=== PATIENT | female | born 1960 | race Caucasian/White ===

== ENCOUNTER 2017-09-22 07:16 | Day surgery (SDC) | payer BC ==
[2017-09-20 11:58] VITALS: BMI 26.2
--- NOTE | 2017-09-21 14:56 | P.GSHP ---
History of Present Illness H&P Date: 09/21/17 Chief Complaint: GI bleeding Patient presents for colonoscopy because of rectal bleeding. No other bowel related complaints. No known history of familial colon cancer. Past Medical History Past Medical History: Atrial Fibrillation, Hypertension, Osteoarthritis (OA), Skin Disorder, Sleep Apnea/CPAP/BIPAP, Thyroid Disorder Additional Past Medical History / Comment(s): dk blood present with stools,rash chin, Other HX: no CPAP. Pt had HELLP syndrome with a . Hypothyroidism. OA bilateral knees,A-fib approx 10 yrs ago History of Any Multi-Drug Resistant Organisms: None Reported Past Surgical History: Adenoidectomy, Bariatric Surgery, Orthopedic Surgery, Tonsillectomy Additional Past Surgical History / Comment(s): 06/08/15 Bilateral knee arthroplasty. Other SX: LAP BAND-fluid present, ARTHROSCOPY LT KNEE, D&C, repair of hiatal hernia, ORIF left ankle, . Past Anesthesia/Blood Transfusion Reactions: Motion Sickness, Postoperative Nausea & Vomiting (PONV) Additional Past Anesthesia/Blood Transfusion Reaction / Comment(s): Pt has recieved platelets without reaction. Smoking Status: Former smoker - Past Family History Sister(s) Family Medical History: Cancer, Hypertension Additional Family Medical History / Comment(s): lung mets to brain. Father Family Medical History: Coronary Artery Disease (CAD) Additional Family Medical History / Comment(s): Father at age 64yrs of a reaction to dye Mother Additional Family Medical History / Comment(s): Mother had myasthenia gravis and polymyositosis. Medications and Allergies Home Medications Medication Instructions Recorded Confirmed Type Levothyroxine Sodium [Synthroid] 137 mcg PO DAILY 12/17/14 09/20/17 History Losartan [Cozaar] 50 mg PO QAM 12/17/14 09/20/17 History ALPRAZolam [Xanax] 0.5 mg PO BID PRN 06/02/15 09/20/17 History Calcium Carbonate/Vitamin D3 1,200 mg PO QAM 09/20/17 09/20/17 History [Calcium 600-Vit D3 500 Softgel] Multivit with Calcium,Iron,Min 1 each PO DAILY 09/20/17 09/20/17 History [Women's Multivitamin] Allergies Allergy/AdvReac Type Severity Reaction Status Date / Time Sulfa (Sulfonamide AdvReac Nausea Verified 09/20/17 11:47 Antibiotics) Assessment and Plan (1) GI bleeding Narrative/Plan: Will proceed with colonoscopy on 09/22. Status: Acute Code(s): K92.2 - GASTROINTESTINAL HEMORRHAGE, UNSPECIFIED SNOMED Code(s): 36828762
[~2017-09-22 07:16] MED LIST: LACTATED RINGERS 1,000 ML IV SCH
[2017-09-22] MEDS ORDERED: LACTATED RINGERS 1,000 ML IV ONE (07:22)
[2017-09-22 07:30] VITALS: TEMP 98.9
[2017-09-22] MEDS ORDERED: fentaNYL (PF) 50 MCG/ML 2 ML AMP ONE (07:45)
[2017-09-22] MEDS ORDERED: PROPOFOL 10 MG/ML 20 ML VIAL IV ONE (07:45)
[2017-09-22] MEDS ORDERED: LIDOCAINE 1% INJ 10MG/ML (20 ML MDV) ONE (07:45)
--- NOTE | 2017-09-22 07:52 | P.HPADDEND ---
H&P Addendum H&P Addendum Date: 09/22/17 Patient here today for colonoscopy. She describes bloody stools which are actually sometimes black in color. No abdominal pain. No prior upper endoscopy. We discussed the options and decided to proceed with upper and lower endoscopy at this time. Physical exam: General: Well-developed, well-nourished HEENT: Normocephalic, sclerae nonicteric Abdomen: Nontender, nondistended Extremities: No edema Neuro: Alert and oriented
--- NOTE | 2017-09-22 08:17 | P.PCN ---
Date of Procedure: 09/22/17 Procedure(s) Performed: PREOPERATIVE DIAGNOSIS: GI bleeding POSTOPERATIVE DIAGNOSIS: Distal esophagitis, mild gastritis, diverticulosis PROCEDURE: 1. EGD with biopsy 2. Colonoscopy ANESTHESIA: MAC SURGEON: Balta Whtiman M.D. SPECIMENS: Antrum, distal esophagus ENDOSCOPIC PROCEDURE: The patient was on the endoscopy table in the left decubitus position. The Olympus gastroscope was inserted into the oropharynx and passed under direct visualization to the region of the third portion of the duodenum. From that point the scope was slowly withdrawn inspecting all surfaces carefully. There were no neoplastic inflammatory or polypoid lesions throughout the duodenum. The pylorus was widely patent. The stomach was carefully inspected. There was mild gastritis present. Retroflexion revealed a previous gastric banding. No evidence of erosion or prolapse. The distal esophagus had evidence of grade B distal esophagitis area and 2-3 linear erosions were present measuring approximately 1 cm in length. Biopsies were taken of the distal esophagitis. The remainder the esophagus appeared normal. The patient was kept on the endoscopy table in the left decubitus position. The Olympus colonoscope was inserted into the anus and passed under direct visualization to the base of the cecum. The appendiceal orifice was visualized. From that point the scope was slowly withdrawn inspecting all surfaces carefully. There were no neoplastic inflammatory or polypoid lesions throughout the cecum, ascending, transverse, descending, sigmoid and rectum. There was mild diverticulosis noted in the left colon. Digital rectal examination was normal. The patient was taken to the recovery room in stable condition per anesthesia guidelines. RECOMMENDATIONS: Consider loosening the patient's lap band. If bleeding persists consider small bowel evaluation.
[2017-09-22 08:19] VITALS: RESP 16
[2017-09-22 08:57] VITALS: BP 137/76; PULSE 64
== END 2017-09-22 09:42 | disposition home or self-care (01) ==
LOC: ORWHC2ENDO 07:16
PROVIDERS: ATTEND Surgery
DX: K20.9 Esophagitis, unspecified (principal); K29.70 Gastritis, unspecified, without bleeding; K57.30 Diverticulosis of large intestine without perforation or abscess without bleeding; Z98.84 Bariatric surgery status; I48.91 Unspecified atrial fibrillation; I10 Essential (primary) hypertension; M19.90 Unspecified osteoarthritis, unspecified site; G47.30 Sleep apnea, unspecified; E03.9 Hypothyroidism, unspecified; M17.0 Bilateral primary osteoarthritis of knee; G47.33 Obstructive sleep apnea (adult) (pediatric); Z87.891 Personal history of nicotine dependence; Z79.899 Other long term (current) drug therapy; Z79.890 Hormone replacement therapy; Z88.2 Allergy status to sulfonamides
CPT/HCPCS: 88305; 88312; 45378; 43239; J2001; J3010; J2704

== ENCOUNTER 2018-07-06 06:17 | Day surgery (SDC) | payer BC ==
[2018-07-04 14:35] VITALS: BMI 25.3
[~2018-07-06 06:17] MED LIST changes: +DEXAMETHASONE SOD PHOSPHATE 10 MG/ML 1 ML VIAL IV ONE; +HEPARIN SODIUM,PORCINE 5,000 UNIT/ML 1 ML VIAL SQ ONE; +HYDROmorphone 1 MG/ML 1 ML SYRINGE IVP PRN; +MIDAZOLAM 2 MG/2 ML VIAL IV PRN; +ONDANSETRON 4 MG/2 ML VIAL IVP ONE; +Pre Op ABX Message 1 EACH MISC MISCELLANE ONE; +SCOPOLAMINE 1.5MG/72HR PATCH TRANSDERM ONE
[2018-07-06] MEDS ORDERED: LIDOCAINE 1% 20 ML VIAL (10MG/ML) FOR IV START INTRADERMA ONE (07:05)
[2018-07-06 07:07] VITALS: RESP 16; TEMP 97.5
[2018-07-06] MEDS ORDERED: BUPIVACAIN-EPI 0.25%-1:200,000 30 ML VIAL SQ ONE ×2 (07:33)
[2018-07-06] MEDS ORDERED: PROPOFOL 10 MG/ML 20 ML VIAL IV ONE (07:54)
[2018-07-06] MEDS ORDERED: fentaNYL (PF) 50 MCG/ML 2 ML AMP ONE (07:54)
[2018-07-06] MEDS ORDERED: GLYCOPYRROLATE 0.2 MG/ML 2 ML VIAL ONE (07:54)
[2018-07-06] MEDS ORDERED: KETAMINE 10 MG/ML 20 ML VIAL ONE (07:54)
[2018-07-06] MEDS ORDERED: MIDAZOLAM 2 MG/2 ML VIAL ONE (07:54)
[2018-07-06] MEDS ORDERED: HYDROcodone/APAP 5-325MG 1 EACH TAB PO PRN (08:32)
[2018-07-06] MEDS ORDERED: NALOXONE 0.4 MG/ML 1 ML VIAL IV PRN (08:32)
--- NOTE | 2018-07-06 08:48 | P.OP ---
Date of Procedure: 07/06/18 Procedure(s) Performed: PREOPERATIVE DIAGNOSIS: Posterior neck sebaceous cyst POSTOPERATIVE DIAGNOSIS: Same PROCEDURE: Excision posterior neck sebaceous cyst SURGEON: J Carlos EBL: Minimal ANESTHESIA: Sedation COMPLICATIONS: None OPERATIVE PROCEDURE: Patient placed in the left decubitus position. The posterior neck was prepped and draped in usual sterile fashion. The skin was localized with Marcaine. A small elliptical incision was made encompassing the puncta overlying the sebaceous cyst. Sebaceous cyst was fully excised using sharp dissection. The subcutaneous tissues were closed using 3-0 Vicryl sutures. The skin was closed using 4-0 Monocryl sutures. Skin glue was used on the skin. DISPOSITION: Stable to recovery room
[2018-07-06 09:09] VITALS: BP 120/67; PULSE 65
== END 2018-07-06 09:59 | disposition home or self-care (01) ==
LOC: OR 06:17
PROVIDERS: ATTEND Surgery
DX: L72.0 Epidermal cyst (principal); I48.91 Unspecified atrial fibrillation; I10 Essential (primary) hypertension; M19.90 Unspecified osteoarthritis, unspecified site; E03.9 Hypothyroidism, unspecified; G47.33 Obstructive sleep apnea (adult) (pediatric); Z98.84 Bariatric surgery status; Z82.49 Family history of ischemic heart disease and other diseases of the circulatory system; Z88.2 Allergy status to sulfonamides; Z79.890 Hormone replacement therapy; Z79.899 Other long term (current) drug therapy
CPT/HCPCS: 88304; 11422; 12041; J2250; J1644; J1100; J2405; J3010; J2704

== ENCOUNTER → 2019-05-31 | Outpatient (CLI) | payer BC ==
[2019-05-31 13:05] LABS: HCT 38.1 % (34.0-46.0); HGB 12.6 gm/dL (11.4-16.0); MCH 30.6 pg (25.0-35.0); MCV 92.5 fL (80.0-100.0); Mean Platelet Volume 8.1; Platelet Count 221 k/uL (150-450); RBC 4.12 m/uL (3.80-5.40); WBC 7.5 k/uL (3.8-10.6)
[2019-05-31 13:20] LABS: African American GFR (CKD) >90 (>60 ml/min/1.73 sqM); Anion Gap 7 mmol/L; Blood Urea Nitrogen 14 mg/dL (7-17); Carbon Dioxide 29 mmol/L (22-30); Chloride 104 mmol/L (98-107); Potassium 4.6 mmol/L (3.5-5.1); Sodium 140 mmol/L (137-145)
== END | disposition home or self-care (01) ==
LOC: LABPAT 11:52
PROVIDERS: ATTEND Internal Medicine Cardiovascular Disease
DX: Z01.812 Encounter for preprocedural laboratory examination (principal); I47.2 Ventricular tachycardia
CPT/HCPCS: 36415; 80051; 82565; 84520; 85027

== ENCOUNTER 2019-06-04 06:33 | Day surgery (SDC) | payer BC ==
[2019-05-31 11:09] VITALS: BMI 26.2
[~2019-06-04 06:33] MED LIST changes: +ALPRAZolam 0.25 MG TAB PO PRN; +ALPRAZolam 0.5 MG TAB PO PRN; -DEXAMETHASONE SOD PHOSPHATE 10 MG/ML 1 ML VIAL IV ONE; -HEPARIN SODIUM,PORCINE 5,000 UNIT/ML 1 ML VIAL SQ ONE; -HYDROmorphone 1 MG/ML 1 ML SYRINGE IVP PRN; -LACTATED RINGERS 1,000 ML IV SCH; -MIDAZOLAM 2 MG/2 ML VIAL IV PRN; +NITROGLYCERIN SL TABS 0.4 MG TAB SUBLINGUAL PRN; -ONDANSETRON 4 MG/2 ML VIAL IVP ONE; -Pre Op ABX Message 1 EACH MISC MISCELLANE ONE; -SCOPOLAMINE 1.5MG/72HR PATCH TRANSDERM ONE; +SODIUM CHLORIDE 0.9% 1,000 ML in EMPTY BAG 1 BAG IV ONE
[2019-06-04] MEDS ORDERED: ASPIRIN 325 MG TAB PO ONE (07:00)
[2019-06-04] MEDS ORDERED: ATORVASTATIN 80 MG TAB PO ONE (07:00)
[2019-06-04 07:05] VITALS: TEMP 98
[2019-06-04] MEDS ORDERED: LIDOCAINE 1% INJ 10MG/ML (20 ML MDV) ONE (07:28)
[2019-06-04] MEDS: MIDAZOLAM (PF) 2 MG/2 ML VIAL IV ONE ×2 (07:45→07:59)
[2019-06-04] MEDS ORDERED: LIDOCAINE 1% INJ 10MG/ML (20 ML MDV) SQ ONE (07:48)
[2019-06-04] MEDS ORDERED: fentaNYL (PF) 50 MCG/ML 2 ML AMP IV ONE (07:49)
[2019-06-04] MEDS ORDERED: fentaNYL (PF) 50 MCG/ML 2 ML AMP ONE (07:49)
[2019-06-04] MEDS ORDERED: IOPAMIDOL-370 125ML BTL INJ ONE (08:09)
[2019-06-04] MEDS ORDERED: RX INFO: IV CONTRAST WAS GIVEN 1 EACH MISC MISCELLANE PRN (08:09)
[2019-06-04] MEDS ORDERED: SODIUM CHLORIDE 0.9% 1,000 ML IV SCH (08:15)
--- NOTE | 2019-06-04 08:25 | CC ---
CARDIAC CATHETERIZATION REPORT INDICATION: Chest pain with abnormal stress test. The patient had nonsustained ventricular tachycardia on treadmill. PROCEDURE NOTE: After obtaining informed consent, left heart catheterization and coronary angiogram were performed via the right femoral artery using standard Julio Cesar catheters. Patient tolerated the procedure well without any obvious immediate complications. A femoral angiogram was performed and Angio-Seal will be deployed for hemostasis. Patient received moderate conscious sedation. Total sedation time was 15 minutes. FINDINGS: 1. HEMODYNAMICS: Left ventricular end-diastolic pressure is 16 to 18 mm. There is no significant gradient across the aortic valve. 2. LEFT VENTRICULOGRAM: Left ventriculogram is not performed. 3. ANGIOGRAPHIC DATA: Left Main Coronary Artery: Left main coronary artery is a normal-sized vessel, shows mild calcification, divides into left anterior descending coronary artery and circumflex coronary artery. Circumflex coronary artery and its branches of significant stenosis. LAD shows some mild atherosclerotic plaque in its midportion. There are no focal significant lesions noted. Right coronary artery is a large dominant vessel and is free of significant disease. CONCLUSION: Mild nonobstructive coronary artery disease. PLAN: I reviewed angiographic data with the patient and told her that her chest pain is noncardiac in origin and the ventricular tachycardia is benign and does not require further evaluation at this time. I will continue with aggressive risk factor modification. In particular, I advised her to quit smoking. MMODL / IJN: [id number] /
--- NOTE | 2019-06-04 08:32 | LTR ---
June 04, 2019 Re: Alessandra Fernandez Dear [place]: I performed cardiac catheterization on Alessandra Fernandez. A detailed catheterization note is enclosed for your records. In brief, cardiac catheterization revealed mild nonobstructive coronary artery disease and her management is going to be in the form of risk factor modification. Thanks for giving us the privilege to participate in the care of this pleasant lady. Sincerely, MD MAICOL Tirado / JOSE: [id number] /
[2019-06-04 09:06] VITALS: RESP 16
[2019-06-04 12:32] VITALS: BP 106/52; PULSE 58
== END 2019-06-04 12:55 | disposition home or self-care (01) ==
LOC: CATHCVL 06:33
PROVIDERS: ATTEND Internal Medicine Cardiovascular Disease
DX: I25.110 Atherosclerotic heart disease of native coronary artery with unstable angina pectoris (principal); I47.2 Ventricular tachycardia; I10 Essential (primary) hypertension; I73.9 Peripheral vascular disease, unspecified; F17.210 Nicotine dependence, cigarettes, uncomplicated; Z88.2 Allergy status to sulfonamides; Z79.890 Hormone replacement therapy; Z79.899 Other long term (current) drug therapy; Z82.49 Family history of ischemic heart disease and other diseases of the circulatory system
CPT/HCPCS: 93458; C1760; C1894; C1769; J2001; Q9967; J2250

== ENCOUNTER → 2019-08-06 | Outpatient (CLI) | payer BC ==
[2019-08-06 13:29] VITALS: BP 112/58; PULSE 58; TEMP 98.1; BMI 29.4
--- NOTE | 2019-08-06 14:35 | P.BASOAP ---
Subjective Progress Note Date: 08/06/19 Principal diagnosis: Morbid obesity Patient here today requesting a lap band adjustment. Patient was last seen in the office in January. She had had a adjustment from 6.5-7.5. She was too tight and came back in the office the following day and had 0.6 mL removed. Requesting more fluid be added. No nausea or vomiting. Some increased hunger. Weight went from 166-174. Objective - Vital Signs Vital signs: Vital Signs Temp 98.1 F 08/06/19 13:23 Pulse 58 L 08/06/19 13:23 Resp BP 112/58 08/06/19 13:23 Pulse Ox Intake & Output 08/05/19 08/06/19 08/06/19 18:59 06:59 18:59 Weight 78.925 kg - Exam Abdomen: Soft, nontender, nondistended Assessment/Plan (1) Morbid obesity Narrative/Plan: Will proceed with LAP-BAND adjustment. The patient's lap band port was palpated. The site was aseptically prepped. The Higuera needle was advanced into the port. A total of 0.3 ml of fluid was was added for a total of 7.2 mL.. Pressure was held and a sterile dressing was applied. Plan: Date: 08/06/19 Initial Weight: Initial BMI: Current Weight: 78.925 kg Current BMI: 29.4 Type of Surgery: Total Volume in Band: Previous Volume: Volume Removed: Volume Added: Band Size:
== END | disposition home or self-care (01) ==
LOC: BARWHC3 12:45
PROVIDERS: ATTEND Surgery
DX: E66.01 Morbid (severe) obesity due to excess calories (principal); Z68.29 Body mass index [BMI] 29.0-29.9, adult; Z98.84 Bariatric surgery status
CPT/HCPCS: 99212

== ENCOUNTER → 2019-08-20 | Outpatient (CLI) | payer BC ==
[2019-08-20 14:50] VITALS: BP 137/63; PULSE 60; RESP 16; TEMP 98.9; BMI 29.2
--- NOTE | 2019-08-20 21:07 | P.BASOAP ---
Subjective Progress Note Date: 08/20/19 Principal diagnosis: Morbid obesity Patient here today requesting a band adjustment. She has lost 1.6 pounds since last visit. Denies nausea or vomiting. Some restriction. No GERD symptoms. Objective - Vital Signs Vital signs: Vital Signs Temp 98.9 F 08/20/19 14:46 Pulse 60 08/20/19 14:46 Resp 16 08/20/19 14:46 BP 137/63 08/20/19 14:46 Pulse Ox Intake & Output 08/20/19 08/20/19 08/21/19 06:59 18:59 06:59 Weight 78.471 kg - Exam Abdomen: Soft, nontender, nondistended Assessment/Plan (1) Morbid obesity Narrative/Plan: Patient interested in band adjustment. We'll add 0.3 cc for a total of 7.5 cc. Follow-up one month. Plan: Date: 08/20/19 Initial Weight: 108.862 kg Initial BMI: 40.5 Current Weight: 78.471 kg Current BMI: 29.2 Type of Surgery: Adjustable Gastric Banding Total Volume in Band: 7.5 Previous Volume: 7.2 Volume Removed: Volume Added: 0.3 Band Size:
== END | disposition home or self-care (01) ==
LOC: BARWHC3 13:39
PROVIDERS: ATTEND Surgery
DX: E66.01 Morbid (severe) obesity due to excess calories (principal); Z68.29 Body mass index [BMI] 29.0-29.9, adult; Z98.84 Bariatric surgery status
CPT/HCPCS: 99212

== ENCOUNTER → 2019-10-01 | Outpatient (CLI) | payer BC ==
[2019-10-01 16:06] VITALS: BP 101/44; PULSE 55; RESP 16; TEMP 98.4; BMI 30.6
--- NOTE | 2019-10-01 21:21 | P.BASOAP ---
Subjective Progress Note Date: 10/01/19 Principal diagnosis: Morbid obesity Patient describes decreased restriction. No pain. No GERD. No vomiting. Band should have 7.5 cc. Previously could not eat bread. Lately eating bread without difficulty Objective - Vital Signs Vital signs: Vital Signs Temp 98.4 F 10/01/19 16:03 Pulse 55 L 10/01/19 16:03 Resp 16 10/01/19 16:03 BP 101/44 10/01/19 16:03 Pulse Ox Intake & Output 10/01/19 10/01/19 10/02/19 06:59 18:59 06:59 Weight 82.1 kg - Exam Abdomen: Soft, nontender, nondistended Assessment/Plan (1) Morbid obesity Narrative/Plan: Patient wants an adjustment. Fluid and band checked. Greater than 6cc present. Will add 0.3. Total should be 7.8. Plan: Date: 10/01/19 Initial Weight: 108.862 kg Initial BMI: 40.5 Current Weight: 82.1 kg Current BMI: 30.6 Type of Surgery: Total Volume in Band: 7.5 Previous Volume: Volume Removed: Volume Added: Band Size:
== END | disposition home or self-care (01) ==
LOC: BARWHC3 15:24
PROVIDERS: ATTEND Surgery
DX: E66.01 Morbid (severe) obesity due to excess calories (principal); Z68.30 Body mass index [BMI] 30.0-30.9, adult
CPT/HCPCS: 99212

== ENCOUNTER → 2019-10-03 | Outpatient (CLI) | payer BC ==
--- NOTE | 2019-10-03 12:03 | FL ---
EXAMINATION TYPE: FL barium swallow DATE OF EXAM: 10/03/2019 CLINICAL HISTORY: Gastric lap for 7 years. Patient does not have restriction at 7-8 cc full. TECHNIQUE: A single contrast esophagram is performed utilizing air and barium. A total of 56 second s of fluoroscopic time was utilized during procedure. 26 fluoroscopic images were saved during the ex amination. COMPARISON: None FINDINGS: Gastric lap band appears appropriately positioned. The esophagus shows normal motility and only very minimal 1-2 second delay in emptying into the stomach. No evidence of hiatal hernia or str icture noted. No significant gastroesophageal reflux was seen during real time performance of this st udy. IMPRESSION: No abnormal positioning of the gastric lap band to suggest prolapse. Contrast flows readily through t he gastric lap band into the stomach without extravasation.
== END | disposition home or self-care (01) ==
LOC: RADUSWWP 11:09
PROVIDERS: ATTEND Surgery
DX: R13.10 Dysphagia, unspecified (principal)
CPT/HCPCS: 74220

== ENCOUNTER 2019-10-28 12:48 | Day surgery (SDC) | payer BC ==
[2019-10-24 17:37] VITALS: BMI 28.7
[~2019-10-28 12:48] MED LIST changes: -ALPRAZolam 0.25 MG TAB PO PRN; -ALPRAZolam 0.5 MG TAB PO PRN; +LACTATED RINGERS 1,000 ML IV SCH; +LIDOCAINE 1% 20 ML VIAL (10MG/ML) FOR IV START INTRADERMA PRN; -NITROGLYCERIN SL TABS 0.4 MG TAB SUBLINGUAL PRN; -SODIUM CHLORIDE 0.9% 1,000 ML in EMPTY BAG 1 BAG IV ONE
[2019-10-28 13:26] VITALS: RESP 16; TEMP 98.4
[2019-10-28] MEDS ORDERED: LIDOCAINE 1% INJ 10MG/ML (20 ML MDV) ONE (14:22)
[2019-10-28] MEDS ORDERED: PROPOFOL 10 MG/ML 20 ML VIAL IV ONE (14:22)
--- NOTE | 2019-10-28 14:24 | P.GSHP ---
History of Present Illness H&P Date: 10/28/19 Chief Complaint: Intractable nausea 58-year-old female known to our service. Patient with history of prior lap band placement. Lately the patient has noticed decreased restriction and some chronic nausea. No dysphagia. No GERD. Past Medical History Past Medical History: Atrial Fibrillation, Hyperlipidemia, Hypertension, Osteoarthritis (OA), Skin Disorder, Sleep Apnea/CPAP/BIPAP, Thyroid Disorder Additional Past Medical History / Comment(s): Doesn't use CPAP, hx wgt loss. Pt had HELLP syndrome with a . A-fib 2007. PVC'S on last Stress Test. Plantar wart on foot. "Lap Band not restricting properly past 5 months." History of Any Multi-Drug Resistant Organisms: None Reported Past Surgical History: Adenoidectomy, Bariatric Surgery, Section, Heart Catheterization, Hernia Repair, Joint Replacement, Orthopedic Surgery, Tonsillectomy Additional Past Surgical History / Comment(s): Total Bilateral Knees. 2011 LAP BAND-fluid present, ARTHROSCOPY LT KNEE, D&C, Repair of hiatal hernia, ORIF left ankle, Ta CTR. Cyst exc post neck. Past Anesthesia/Blood Transfusion Reactions: Motion Sickness, Postoperative Nausea & Vomiting (PONV) Additional Past Anesthesia/Blood Transfusion Reaction / Comment(s): Pt has received platelets without reaction. Smoking Status: Former smoker - Past Family History Sister(s) Family Medical History: Cancer, Hypertension Additional Family Medical History / Comment(s): lung mets to brain. Father Family Medical History: Coronary Artery Disease (CAD) Additional Family Medical History / Comment(s): Father at age 64yrs of a reaction to dye Mother Family Medical History: Cancer Additional Family Medical History / Comment(s): Mother had myasthenia gravis and polymyositosis. Skin CA Medications and Allergies Home Medications Medication Instructions Recorded Confirmed Type Levothyroxine Sodium [Synthroid] 125 mcg PO DAILY 12/17/14 10/28/19 History Losartan [Cozaar] 50 mg PO QAM 12/17/14 10/28/19 History ALPRAZolam [Xanax] 0.5 mg PO BID PRN 06/02/15 10/28/19 History Metoprolol Succinate (ER) [Toprol 25 mg PO DAILY 05/31/19 10/28/19 History Xl] Multivitamins, Thera [Multivitamin 1 tab PO DAILY 05/31/19 10/28/19 History (formulary)] Aspirin/Acetaminophen/Caffeine 1 each PO DIRECTED PRN 10/24/19 10/28/19 History [Excedrin Extra Strength Caplet] Calcium Carbonate/Vitamin D3 1 each PO DAILY 10/24/19 10/28/19 History [Calcium 600-Vit D3 400 Tablet] Pravastatin Sodium [Pravachol] 20 mg PO DAILY 10/24/19 10/28/19 History Allergies Allergy/AdvReac Type Severity Reaction Status Date / Time Sulfa (Sulfonamide AdvReac Nausea Verified 10/28/19 13:25 Antibiotics) Surgical - Exam Vital Signs Temp Pulse Resp BP Pulse Ox 98.4 F 57 L 16 140/65 96 10/28/19 13:25 10/28/19 13:25 10/28/19 13:25 10/28/19 13:25 10/28/19 13:25 Physical exam: General: Well-developed, well-nourished HEENT: Normocephalic, sclerae nonicteric Abdomen: Nontender, nondistended Extremities: No edema Neuro: Alert and oriented Assessment and Plan (1) Intractable nausea and vomiting Narrative/Plan: Patient with intractable nausea and decreased restriction. We'll proceed with upper endoscopy to evaluate for possible gastric erosion. Current Visit: Yes Status: Acute Code(s): R11.2 - NAUSEA WITH VOMITING, UNSPECIFIED SNOMED Code(s): 595081973
--- NOTE | 2019-10-28 14:34 | P.PCN ---
Date of Procedure: 10/28/19 Procedure(s) Performed: Preoperative Dx: Intractable nausea, loss of restriction Postoperative Dx: Mild gastritis Procedure: EGD with Bx Anesthesia: Sedation Endoscopist: Dr. hWitman Specimens: Antrum Endoscopic Procedure: The patient was on the endoscopy table in the left decubitus position. The Olympus gastroscope was inserted into the oropharynx and passed under direct visualization to the region of the third portion of the duodenum. From that point the scope was slowly withdrawn inspecting all cordelia faces carefully. There were no neoplastic inflammatory or polypoid lesions throughout the duodenum. The pylorus was widely patent. The stomach was carefully inspected. There was gastritis present. A biopsy of the antrum took place to rule out H. pylori. Retroflexion revealed a normal band plication. No hernia was seen. No evidence of erosion or prolapse was seen. The esophagus was then carefully examined. There were no neoplastic inflammatory or polypoid lesions throughout the visualized esophagus. The patient was then taken to the recovery room in stable condition per anesthesia guidelines. Recommendations: Await biopsy results. Proceed with band adjustment
[2019-10-28 15:23] VITALS: BP 115/67; PULSE 64
== END 2019-10-28 15:28 | disposition home or self-care (01) ==
LOC: ORWHC2ENDO 12:48
PROVIDERS: ATTEND Surgery
DX: K29.50 Unspecified chronic gastritis without bleeding (principal); I10 Essential (primary) hypertension; I25.10 Atherosclerotic heart disease of native coronary artery without angina pectoris; I48.91 Unspecified atrial fibrillation; E78.5 Hyperlipidemia, unspecified; E07.9 Disorder of thyroid, unspecified; M19.90 Unspecified osteoarthritis, unspecified site; G47.30 Sleep apnea, unspecified; Z88.2 Allergy status to sulfonamides; Z87.891 Personal history of nicotine dependence; Z79.890 Hormone replacement therapy; Z79.899 Other long term (current) drug therapy; Z98.84 Bariatric surgery status; Z90.89 Acquired absence of other organs; Z96.653 Presence of artificial knee joint, bilateral; Z98.890 Other specified postprocedural states; Z82.49 Family history of ischemic heart disease and other diseases of the circulatory system; Z80.1 Family history of malignant neoplasm of trachea, bronchus and lung; Z80.8 Family history of malignant neoplasm of other organs or systems; Z82.0 Family history of epilepsy and other diseases of the nervous system
CPT/HCPCS: 43239; J2001; J2704; 88305

== ENCOUNTER → 2019-10-29 | Outpatient (CLI) | payer BC ==
[2019-10-29 13:29] VITALS: BP 123/78; PULSE 59; RESP 16; TEMP 97.8; BMI 29.9
--- NOTE | 2019-10-29 16:19 | P.BASOAP ---
Subjective Progress Note Date: 10/29/19 Principal diagnosis: Morbid obesity Patient returns today. Underwent upper endoscopy yesterday which showed no evidence of gastric erosion. She is requesting a larger fill. Still feels little restriction. No nausea or vomiting. Objective - Vital Signs Vital signs: Vital Signs Temp 97.8 F 10/29/19 13:25 Pulse 59 L 10/29/19 13:25 Resp 16 10/29/19 13:25 BP 123/78 10/29/19 13:25 Pulse Ox Intake & Output 10/28/19 10/29/19 10/29/19 18:59 06:59 18:59 Weight 80.286 kg - Exam Abdomen: Soft, nondistended, nontender Assessment/Plan (1) Morbid obesity Narrative/Plan: Will proceed with LAP-BAND adjustment. 0.5 mL added sterilely for a total of 8.3 mL. Patient able to tolerate water Plan: Date: 10/29/19 Initial Weight: 108.862 kg Initial BMI: 40.5 Current Weight: 80.286 kg Current BMI: 29.9 Type of Surgery: Total Volume in Band: 7.8 Previous Volume: 7.5 Volume Removed: Volume Added: 0.3 Band Size:
== END | disposition home or self-care (01) ==
LOC: BARWHC3 13:12
PROVIDERS: ATTEND Surgery
DX: E66.01 Morbid (severe) obesity due to excess calories (principal); Z68.29 Body mass index [BMI] 29.0-29.9, adult
CPT/HCPCS: 99212

== ENCOUNTER → 2020-10-13 | Outpatient (CLI) | payer BC ==
--- NOTE | 2020-10-13 15:30 | BD ---
EXAMINATION TYPE: Axial Bone Density DATE OF EXAM: 10/13/2020 COMPARISON: NONE CLINICAL HISTORY: Postmenopausal female Height: 5 FT 3 1/4 IN Weight: 175 FRAX RISK QUESTIONS: Alcohol (3 or more units per day): NO Family History (Parent hip fracture): YES Glucocorticoids (More than 3mos): NO (Ex: prednisone, prednisolone, methylprednisolone, dexamethasone, and hydrocortisone). History of Fracture in Adulthood: NO Secondary Osteoporosis: 1. Type 1 Diabetes: NO 2. Hyperthyroidism: NO 3. Menopause before 45: NO 4. Malnutrition: NO 5. Chronic liver disease: NO Rheumatoid Arthritis: NO Current Tobacco Use: NO RISK FACTORS HISTORY OF: Family History of Osteoporosis: YES Active: YES Diet low in dairy products/other sources of calcium: NO Postmenopausal woman: AGE 50 Take estrogen and/or progesterone medications: NONE Lost more than 2 inches in height since high school: NO MEDICATIONS: Thyroid Medications: YES Which medication: LEVOTHYROXINE How Long: OVER 10 YEARS Additional Medications: ,LEVOTHYROXINE ,METOPROLOL, LOSARTIN,PREVASTATIN Additional History: MIKEL CARPAL TUNNEL SURG EXAM MEASUREMENTS: Bone mineral densitometry was performed using the [employer] System. Bone mineral density as measured about the Lumbar spine is: ----- L1-L4(G/cm2): 1.089 T Score Values are as follows: ----- L2: -1.2 ----- L3: -1.2 ----- L4: -0.2 ----- L1-L4: -0.8 BASELINE Bone mineral density about the R hip (g/cm2): 0.757 Bone mineral density about the L hip (g/cm2): 0.802 T Score values are as follows: -----R Neck: -2.0 -----L Neck: -1.7 -----R Total: -1.1 -----L Total: -0.7 BASELINE IMPRESSION: Osteopenia (T Score between -2.5 and -1). There is slightly increased risk of fracture and the patient may be considered for treatment. Re-Screen 2-5 years. NOTE: T-SCORE=SD OF THE YOUNG ADULT MEAN.
== END | disposition home or self-care (01) ==
LOC: RADBDWWP 13:01
PROVIDERS: ATTEND Internal Medicine Rheumatology
DX: M85.80 Other specified disorders of bone density and structure, unspecified site (principal); Z13.820 Encounter for screening for osteoporosis
CPT/HCPCS: 77080

== ENCOUNTER → 2021-01-20 | Outpatient (CLI) | payer BC ==
--- NOTE | 2021-01-20 17:00 | CT ---
Result: History: Right foot pain status post fall. Comparison: None available. Technique: Noncontrast axial CT images of the right foot were obtained with images provided in bone a nd soft tissue algorithm. Coronal, sagittal and 3-D reformats were provided and reviewed. Automated dose control was used for this exam. Findings: The bone mineralization is age-appropriate. There is a tiny 1 to 2 mm ossific density adjacent to the distal medial cuneiform as well as the dist al cuboid bone. The remaining visualized osseous structures are anatomic alignment. No evidence of d islocation or significant joint effusion. There is soft tissue edema about the foot. Impression: Tiny ossific densities adjacent to the medial cuneiform and cuboid, concerning for chip fractures.
== END | disposition home or self-care (01) ==
LOC: RADCTMAIN 15:34
PROVIDERS: ATTEND Orthopaedic Surgery
DX: M79.671 Pain in right foot (principal); W19.XXXA Unspecified fall, initial encounter

== ENCOUNTER → 2021-09-07 | Outpatient (CLI) | payer BC ==
--- NOTE | 2021-09-07 13:29 | P.BASOAP ---
Subjective Progress Note Date: 09/07/21 Principal diagnosis: Morbid obesity Patient returns for reevaluation. Seen approximately 2 years ago. Patient at that time had a lap band fill performed from 7.8-8.3 mL. Then patient was having difficulty feeling restriction. She had an upper endoscopy as we were somewhat worried about the possibility of lap band erosion. This did not show any evidence of erosion. Patient returns stating that she has very little if any restriction. Weight has increased by 16 pounds. She wants a refill. Objective - Exam Abdomen: Soft, nontender, nondistended Assessment/Plan (1) Morbid obesity Narrative/Plan: Patient and I discussed options. We will plan a filling band at this time. Patient's band was accessed sterilely. Initially there was no fluid able to be aspirated. Even after I added 0.5 mL of fluid we were unable to draw back any fluid. I then chose a larger syringe that had 2-3 mL of saline in it. Initially there was some resistance to filling the band however once I was able to inject some fluid I was able to aspirate more fluid than anticipated. A larger syringe was then hooked up and we were able to aspirate approximately 4 mL of fluid. The patient should've at over 8 mL in her band. There was some cloudiness to the fluid slight cloudiness to the fluid with a small amount of particular matter. There was no food-like material or bilious fluid seen. I suspect the patient may have a small leak from the system. Also possible that we were unable to aspirate the whole amount. Options reviewed. She would like to keep her band. We'll schedule for a fluoroscopy fill at this time. We'll plan emptying the band fully and refilling if no leaks seen. Plan: Date: Initial Weight: 108.862 kg Initial BMI: Current Weight: Current BMI: Type of Surgery: Total Volume in Band: 8.3 Previous Volume: Volume Removed: Volume Added: Band Size:
[2021-09-07 13:34] VITALS: BP 122/86; PULSE 55; TEMP 98.4; BMI 32.5
== END ==
LOC: BARWHC3 12:33
PROVIDERS: ATTEND Surgery
DX: E66.01 Morbid (severe) obesity due to excess calories (principal); Z46.51 Encounter for fitting and adjustment of gastric lap band; Z68.32 Body mass index [BMI] 32.0-32.9, adult; Z87.891 Personal history of nicotine dependence; Z88.2 Allergy status to sulfonamides
CPT/HCPCS: 99212

== ENCOUNTER → 2021-09-30 | Outpatient (CLI) | payer BC ==
--- NOTE | 2021-09-30 14:05 | P.BASOAP ---
Subjective Progress Note Date: 09/30/21 Principal diagnosis: Malfunctioning LAP-BAND port Patient presents to the fluoroscopy unit for a fluoroscopy band fill. Patient has had no complaints since her last visit. No pain. Objective - Exam Abdomen: Soft, nontender, nondistended Assessment/Plan (1) Morbid obesity Narrative/Plan: Will proceed with fluoroscopy fell at this time. Port site prepped sterilely. A Higuera needle advanced into the port without difficulty. Isovue used to inject into the port and immediately extravasation of contrast is seen at the junction between the lap band tubing and the port tubing. Only approximately 1-2 mL of contrast was noted to extravasate. The fluid was evacuated. The needle was withdrawn. Pressure and a Band-Aid was applied. Findings discussed with patient in detail. We will proceed with laparoscopic lap band port replacement. Port will be moved to the right upper quadrant. Plan: Date: Initial Weight: 108.862 kg Initial BMI: Current Weight: Current BMI: Type of Surgery: Total Volume in Band: 8.3 Previous Volume: Volume Removed: Volume Added: Band Size:
[2021-09-30 14:55] VITALS: BMI 32.5
== END ==
LOC: BARWHC3 14:10
PROVIDERS: ATTEND Surgery
DX: E66.01 Morbid (severe) obesity due to excess calories (principal); Z98.84 Bariatric surgery status; Z68.32 Body mass index [BMI] 32.0-32.9, adult; Z88.2 Allergy status to sulfonamides; Z87.891 Personal history of nicotine dependence
CPT/HCPCS: 99211

== ENCOUNTER → 2021-09-30 | Outpatient (CLI) | payer BC ==
--- NOTE | 2021-09-30 15:03 | FL ---
EXAMINATION TYPE: FL UGI limited DATE OF EXAM: 09/30/2021 COMPARISON: 10/21/2011 HISTORY: 60-year-old female R13.10, dysphagia, check port positioning. TECHNIQUE: Real-time fluoroscopy as the surgeon accessed the patient's port and injected 5 mL Isovue- 370. Total fluoroscopy time: 19 seconds. Total images: 7. FINDINGS: There is satisfactory contrast filling of the left and device in satisfactory positioning, unchanged compared to 10/21/2011. IMPRESSION: Lap band port accessed by the surgeon. Contrast injection shows satisfactory filling and positioning of the band, unchanged in comparison to 2011.
== END | disposition home or self-care (01) ==
LOC: RADFLMAIN 12:50
PROVIDERS: ATTEND Surgery
DX: R13.10 Dysphagia, unspecified (principal)
CPT/HCPCS: 74240

== ENCOUNTER → 2021-11-29 | Outpatient (CLI) | payer BC ==
[2021-11-29 22:23] LABS: Basophils # (A) 0.04 X 10*3/uL (0.00-0.10); Basophils % (A) 0.6 %; Eosinophils # (A) 0.09 X 10*3/uL (0.04-0.35); Eosinophils % (A) 1.4 %; HCT 39.9 % (37.2-46.3); HGB 12.3 g/dL (12.0-15.0); Immature Grans, Automated 0.2 %; Lymphocytes # (A) 2.37 X 10*3/uL (0.90-5.00); Lymphocytes % (A) 35.7 %; MCH 29.4 pg (27.0-32.0); MCHC 30.8 g/dL (32.0-37.0); MCV 95.2 fL (80.0-97.0); Monocytes # (A) 0.58 X 10*3/uL (0.20-1.00); Monocytes % (A) 8.7 %; NRBC Per 100 WBC 0 /100 WBCS (0.0-0.0); Neutrophils # (A) 3.54 X 10*3/uL (1.80-7.70); Neutrophils % (A) 53.4 %; Platelet Count 239 X 10*3/uL (140-440); RBC 4.19 X 10*6/uL (4.10-5.20); RDW 12.8 % (11.5-14.5); WBC 6.63 X 10*3/uL (4.50-10.00)
[2021-11-29 22:33] LABS: African American GFR (CKD) 108.4 (60.0-200.0); Albumin 4.8 g/dL (3.8-4.9); Albumin/Globulin Ratio 2.09 (1.60-3.17); Anion Gap 9.7 mmol/L (10.00-18.00); BUN/Creat Ratio 19.29 Ratio (12.00-20.00); Blood Urea Nitrogen 13.5 mg/dL (9.0-27.0); Calcium 9.7 mg/dL (8.7-10.3); Carbon Dioxide 26.3 mmol/L (20.0-27.5); Globulin 2.3 g/dL (1.6-3.3); Non-African American GFR(CKD) 93.5 (60.0-200.0); Potassium 5.2 mmol/L (3.5-5.5); Total Bilirubin 0.3 mg/dL (0.30-1.20); Total Protein 7.1 g/dL (6.2-8.2)
== END | disposition home or self-care (01) ==
LOC: LABPAT 13:37
PROVIDERS: ATTEND Surgery
DX: Z01.812 Encounter for preprocedural laboratory examination (principal)
CPT/HCPCS: 36415; 80053; 85025; 93005

== ENCOUNTER → 2021-12-14 | Outpatient (CLI) | payer BC ==
[2021-12-14 14:02] VITALS: BP 139/58; PULSE 66; RESP 16; BMI 31.6
[2021-12-14 14:06] VITALS: TEMP 98.5
--- NOTE | 2021-12-14 14:24 | P.BASOAP ---
Subjective Progress Note Date: 12/14/21 Principal diagnosis: Morbid obesity Patient returns after having been port replaced 12/06. She had 3 mL added at the time. She has no real restriction at this time. Would like 1 mL added. Objective - Vital Signs Vital signs: Vital Signs Temp 98.5 F 12/14/21 14:00 Pulse 66 12/14/21 14:00 Resp 16 12/14/21 14:00 BP 139/58 12/14/21 14:00 Pulse Ox Intake & Output 12/13/21 12/14/21 12/14/21 18:59 06:59 18:59 Weight 84.867 kg - Exam Abdomen: Soft, nondistended, incisions clean and dry Assessment/Plan (1) Morbid obesity Narrative/Plan: Patient would like fluid added to her band. The patient's lap band port was palpated. The site was aseptically prepped. The Higuera needle was advanced into the port. A total of 1 ml of fluid was added for a total of 4 mL. Pressure was held and a sterile dressing was applied. Plan: Date: 12/14/21 Initial Weight: 108.862 kg Initial BMI: 40.5 Current Weight: 84.867 kg Current BMI: 31.6 Type of Surgery: Total Volume in Band: 8.3 Previous Volume: Volume Removed: Volume Added: Band Size:
== END ==
LOC: BARWHC3 13:16
PROVIDERS: ATTEND Surgery
DX: E66.01 Morbid (severe) obesity due to excess calories (principal); Z46.51 Encounter for fitting and adjustment of gastric lap band; Z68.31 Body mass index [BMI] 31.0-31.9, adult; Z88.2 Allergy status to sulfonamides; Z87.891 Personal history of nicotine dependence
CPT/HCPCS: 99212

== ENCOUNTER → 2022-01-04 | Outpatient (CLI) | payer BC ==
[2022-01-04 13:50] VITALS: BP 119/61; PULSE 70; RESP 12; TEMP 98.5
--- NOTE | 2022-01-04 13:52 | P.BASOAP ---
Subjective Progress Note Date: 01/04/22 Principal diagnosis: Morbid obesity Patient returns for LAP-BAND adjustment. Had her port replaced 4-6 weeks ago. She had 3 mL at at the time of her poor repair. 1 mL was added 3 weeks ago. She has lost 4-5 pounds. She says she would like a little more fluid added however. She only had 1 episode of dysphagia to dry chicken. Objective - Vital Signs Vital signs: Vital Signs Temp 98.5 F 01/04/22 13:45 Pulse 70 01/04/22 13:45 Resp 12 01/04/22 13:45 BP 119/61 01/04/22 13:45 Pulse Ox - Exam Abdomen: Soft, nontender, nondistended, incisions clean and dry Assessment/Plan (1) Morbid obesity Narrative/Plan: Patient doing well at this time. She would like more fluid added. We'll do a small adjustment at this time and add 0.5 mL. The patient's lap band port was palpated. The site was aseptically prepped. The Higuera needle was advanced into the port. A total of 0.5 ml of fluid was added f or a total of 4.5 mL. Pressure was held and a sterile dressing was applied. Plan: Date: 01/04/22 Initial Weight: 108.862 kg Initial BMI: 40.5 Current Weight: Current BMI: Type of Surgery: Total Volume in Band: 8.3 Previous Volume: Volume Removed: Volume Added: Band Size:
[2022-01-04 14:31] VITALS: BMI 30.9
== END ==
LOC: BARWHC3 13:22
PROVIDERS: ATTEND Surgery
DX: E66.01 Morbid (severe) obesity due to excess calories (principal); Z46.51 Encounter for fitting and adjustment of gastric lap band; Z68.30 Body mass index [BMI] 30.0-30.9, adult; Z88.2 Allergy status to sulfonamides; Z87.891 Personal history of nicotine dependence
CPT/HCPCS: 99212

== ENCOUNTER → 2023-07-11 | Outpatient (CLI) | payer BC ==
--- NOTE | 2023-07-11 12:43 | P.BASOAP ---
Subjective Progress Note Date: 07/11/23 Principal diagnosis: Morbid obesity Patient here today to have her band loosened. She has an upcoming upper and lower endoscopy. She is currently at 4.7 mL. She thinks she is probably on the tight side. She does not have reflux unless she eats after 6 PM. No night cough. She does have difficulty drinking large volume of liquids. She wants her band loosened so she can do the pill prep. Objective - Vital Signs Vital signs: Vital Signs Temp 97.6 F 07/11/23 12:25 Pulse 59 L 07/11/23 12:25 Resp 16 07/11/23 12:25 BP 122/83 07/11/23 12:25 Pulse Ox FiO2 Intake & Output 07/10/23 07/11/23 07/11/23 18:59 06:59 18:59 Weight 82.1 kg - Exam Abdomen: Soft, nontender, nondistended Assessment/Plan (1) Morbid obesity Narrative/Plan: Patient doing well at this time. We'll loosen the band. We'll remove 2.7 mL. Patient now has 2 mL in the band. Await upcoming EGD and colonoscopy. Plan: Date: 07/11/23 Initial Weight: 108.862 kg Initial BMI: 34.4 Current Weight: 82.1 kg Current BMI: 25.9 Type of Surgery: Adjustable Gastric Banding Total Volume in Band: 4.7 Previous Volume: Volume Removed: Volume Added: Band Size:
[2023-07-11 12:45] VITALS: BP 122/83; PULSE 59; RESP 16; TEMP 97.6; BMI 25.9
== END ==
LOC: BARWHC3 11:57
PROVIDERS: ATTEND Surgery
DX: E66.01 Morbid (severe) obesity due to excess calories (principal); Z46.51 Encounter for fitting and adjustment of gastric lap band; Z68.26 Body mass index [BMI] 26.0-26.9, adult; Z88.2 Allergy status to sulfonamides; Z87.891 Personal history of nicotine dependence
CPT/HCPCS: 99212

== ENCOUNTER 2023-08-01 08:17 | Day surgery (SDC) | payer BC ==
[~2023-08-01 08:17] MED LIST changes: -LIDOCAINE 1% 20 ML VIAL (10MG/ML) FOR IV START INTRADERMA PRN
[2023-08-01 09:01] VITALS: RESP 16; TEMP 98
[2023-08-01] MEDS ORDERED: PROPOFOL 10 MG/ML 20 ML VIAL IV ONE (09:15)
[2023-08-01] MEDS ORDERED: LIDOCAINE 1% INJ 10MG/ML (20 ML MDV) ONE (09:15)
--- NOTE | 2023-08-01 09:19 | P.GSHP ---
History of Present Illness H&P Date: 08/01/23 Chief Complaint: Abdominal pain, change in bowel habits 62-year-old female here for upper and lower endoscopy. Patient with upper abdominal pain at times. Mild reflux symptoms. Some intermittent loose stools and constipation. No rectal bleeding. Last EGD 3 years ago. Patient thinks her last colonoscopy was 5 years ago. No history of polyps. No family history of colon cancer. Patient with history of previous lap band. Lap band was loosened recently down to 2 mL. Past Medical History Past Medical History: Atrial Fibrillation, GERD/Reflux, Hyperlipidemia, Hypertension, Osteoarthritis (OA), Sleep Apnea/CPAP/BIPAP, Thyroid Disorder Additional Past Medical History / Comment(s): Doesn't use CPAP, hx wgt loss. Pt had HELLP syndrome with a . hx. A-fib-just wore a heart monitor for 1 month, PVC'S on last Stress test. recent change in BM and heartburn History of Any Multi-Drug Resistant Organisms: None Reported Past Surgical History: Adenoidectomy, Bariatric Surgery, Section, Heart Catheterization, Hernia Repair, Joint Replacement, Orthopedic Surgery, Tonsillectomy Additional Past Surgical History / Comment(s): Total Bilateral Knees. 2011 LAP BAND-fluid present, ARTHROSCOPY LT KNEE, D&C, Repair of hiatal hernia, ORIF left ankle, Ta CTR. Cyst exc post neck, colonoscopy. lap band port replacement 12-06-21 Past Anesthesia/Blood Transfusion Reactions: Motion Sickness, Postoperative Nausea & Vomiting (PONV) Additional Past Anesthesia/Blood Transfusion Reaction / Comment(s): Pt has received platelets without reaction. Smoking Status: Former smoker - Past Family History Sister(s) Family Medical History: Cancer, Hypertension Additional Family Medical History / Comment(s): lung mets to brain. Father Family Medical History: Coronary Artery Disease (CAD) Additional Family Medical History / Comment(s): Father at age 64yrs of a reaction to dye Mother Family Medical History: Cancer Additional Family Medical History / Comment(s): Mother had myasthenia gravis and polymyositosis. Skin CA Medications and Allergies Home Medications Medication Instructions Recorded Confirmed Type Levothyroxine Sodium [Synthroid] 88 mcg PO DAILY 12/17/14 08/01/23 History Losartan [Cozaar] 50 mg PO QAM 12/17/14 08/01/23 History ALPRAZolam [Xanax] 0.5 mg PO BID PRN 06/02/15 08/01/23 History Metoprolol Succinate (ER) [Toprol 25 mg PO DAILY 05/31/19 08/01/23 History Xl] Fluticasone Nasal [place] [Flonase 2 spray EA NOSTRIL DAILY PRN 11/29/21 08/01/23 History Nasal [place]] Rosuvastatin [Crestor] 10 mg PO HS 11/29/21 08/01/23 History Apixaban [Eliquis] 5 mg PO BID 01/04/22 08/01/23 History Unk Multi Vitamin 1 tab PO DAILY 07/25/23 08/01/23 History Allergies Allergy/AdvReac Type Severity Reaction Status Date / Time Sulfa (Sulfonamide AdvReac Nausea Verified 08/01/23 08:43 Antibiotics) Surgical - Exam Vital Signs Temp Pulse Resp BP Pulse Ox 98.0 F 53 L 16 135/62 97 08/01/23 08:53 08/01/23 08:53 08/01/23 08:53 08/01/23 08:53 08/01/23 08:53 Physical exam: General: Well-developed, well-nourished HEENT: Normocephalic, sclerae nonicteric Abdomen: Nontender, nondistended Extremities: No edema Neuro: Alert and oriented Assessment and Plan (1) Abdominal pain Narrative/Plan: Will proceed with upper and lower endoscopy Current Visit: Yes Status: Acute Code(s): R10.9 - UNSPECIFIED ABDOMINAL PAIN SNOMED Code(s): 52275980
--- NOTE | 2023-08-01 09:38 | P.PCN ---
Date of Procedure: 08/01/23 Procedure(s) Performed: PREOPERATIVE DIAGNOSIS: Abdominal pain, change in bowel habits, GERD POSTOPERATIVE DIAGNOSIS: Diffuse gastritis, sigmoid colon polyp, diverticulosis PROCEDURE: 1. EGD with biopsy 2. Colonoscopy with biopsy [place] [facility] [place]: Balta Whitman M.D. SPECIMENS: Antrum ENDOSCOPIC PROCEDURE: The patient was on the endoscopy table in the left decubitus position. The Olympus gastroscope was inserted into the oropharynx and passed under direct visualization to the region of the third portion of the duodenum. From that point the scope was slowly withdrawn inspecting all surfaces carefully. There were no neoplastic inflammatory or polypoid lesions throughout the duodenum. The pylorus was widely patent. The stomach was carefully inspected. There was diffuse mild to moderate gastritis present. A biopsy of the antrum took place to rule out H. pylori. Retroflexion revealed a normal band plication. No definite hernia was seen. The esophagus was then carefully examined. There were no neoplastic inflammatory or polypoid lesions throughout the visualized esophagus. The patient was kept on the endoscopy table in the left decubitus position. The Olympus colonoscope was inserted into the anus and passed under direct visualization to the base of the cecum. The appendiceal orifice was visualized. From that point the scope was slowly withdrawn inspecting all surfaces carefully. There were no neoplastic inflammatory or polypoid lesions throughout the cecum, ascending, transverse, and descending colon. In the sigmoid colon there was a small polyp removed using the cold biopsy forceps. The remainder the sigmoid and rectum was normal. There was mild scattered diverticulosis. The patient's prep was slightly suboptimal. Digital rectal examination was normal. The patient was taken to the recovery room in stable condition per anesthesia guidelines. RECOMMENDATIONS: Await biopsy results. Resume diet.
[2023-08-01 10:02] VITALS: BP 137/75; PULSE 65
== END 2023-08-01 10:14 | disposition home or self-care (01) ==
LOC: ORWHC2ENDO 08:17
PROVIDERS: ATTEND Surgery
DX: K29.50 Unspecified chronic gastritis without bleeding (principal); K57.30 Diverticulosis of large intestine without perforation or abscess without bleeding; K21.9 Gastro-esophageal reflux disease without esophagitis; I10 Essential (primary) hypertension; E78.5 Hyperlipidemia, unspecified; G47.33 Obstructive sleep apnea (adult) (pediatric); I48.91 Unspecified atrial fibrillation; M19.90 Unspecified osteoarthritis, unspecified site; Z79.01 Long term (current) use of anticoagulants; Z79.890 Hormone replacement therapy; Z87.891 Personal history of nicotine dependence; Z88.1 Allergy status to other antibiotic agents; Z88.2 Allergy status to sulfonamides; Z98.84 Bariatric surgery status; Z79.899 Other long term (current) drug therapy
CPT/HCPCS: 88305; 45380; 43239; J2001; J2704

== ENCOUNTER → 2023-08-08 | Outpatient (CLI) | payer BC ==
[2023-08-08 15:27] VITALS: BP 131/83; PULSE 94; RESP 16; TEMP 99; BMI 29.4
--- NOTE | 2023-08-08 15:54 | P.BASOAP ---
Subjective Progress Note Date: 08/08/23 Principal diagnosis: Morbid obesity Patient returns after upper and lower endoscopy last week. Pathology findings reviewed. Small hyperplastic polyp seen. Prior to the endoscopy she had 2.7 mL removed. The patient would like most of the fluid added back. She does admit that she was too tight prior to loosening the band. The pain she was having in her upper abdomen and has improved. Objective - Vital Signs Vital signs: Vital Signs Temp 99 F 08/08/23 15:16 Pulse 94 08/08/23 15:16 Resp 16 08/08/23 15:16 BP 131/83 08/08/23 15:16 Pulse Ox FiO2 Intake & Output 08/07/23 08/08/23 08/08/23 18:59 06:59 18:59 Weight 78.925 kg - Exam Abdomen: Soft, nontender, nondistended Assessment/Plan (1) Morbid obesity Narrative/Plan: 62-year-old female with morbid obesity. Doing well after recent endoscopy. Recommend repeat EGD and colonoscopy 7 years. We will add some of the fluid back to the band at this time. The patient's lap band port was palpated. The site was aseptically prepped. The Higuera needle was advanced into the port. A total of 2 ml of fluid was added for a total of 4 mL. Pressure was held and a sterile dressing was applied. Plan: Date: 08/08/23 Initial Weight: 108.862 kg Initial BMI: 40.5 Current Weight: 78.925 kg Current BMI: 29.4 Type of Surgery: Adjustable Gastric Banding Total Volume in Band: 2.0 Previous Volume: Volume Removed: Volume Added: Band Size:
== END ==
LOC: BARWHC3 14:28
PROVIDERS: ATTEND Surgery
DX: E66.01 Morbid (severe) obesity due to excess calories (principal); Z68.29 Body mass index [BMI] 29.0-29.9, adult; Z88.2 Allergy status to sulfonamides; Z87.891 Personal history of nicotine dependence
CPT/HCPCS: 99212

== ENCOUNTER → 2023-09-19 | Outpatient (CLI) | payer BC ==
--- NOTE | 2023-09-19 15:14 | P.BASOAP ---
Subjective Progress Note Date: 09/19/23 Principal diagnosis: Morbid obesity Patient returns requesting a lap band adjustment. Would like to go back to 4.5 mL. Says that was a good level of restriction. She admits that she still has mild epigastric tenderness but much improved. Etiology remains somewhat unclear. She seemed to get somewhat better after loosening her band. Denies nausea, no vomiting, no heartburn, no night cough. Objective - Vital Signs Vital signs: Vital Signs Temp Pulse Resp 16 09/19/23 15:09 BP Pulse Ox FiO2 - Exam Abdomen: Soft, nontender, nondistended Assessment/Plan (1) Morbid obesity Narrative/Plan: Patient doing well at this time. She would like further fill. We'll add 0.5 mL. The patient's lap band port was palpated. The site was aseptically prepped. The Higuera needle was advanced into the port. A total of 0.5 ml of fluid was added for a total of 4.5 mL. Pressure was held and a sterile dressing was applied. Plan: Date: 09/19/23 Initial Weight: 108.862 kg Initial BMI: Current Weight: Current BMI: Type of Surgery: Vertical Sleeve Gastrectomy Total Volume in Band: 2.0 Previous Volume: Volume Removed: Volume Added: Band Size:
[2023-09-19 15:22] VITALS: RESP 16
[2023-09-19 15:46] VITALS: BP 108/54; PULSE 63; TEMP 98.1
== END ==
LOC: BARWHC3 14:56
PROVIDERS: ATTEND Surgery
DX: E66.01 Morbid (severe) obesity due to excess calories (principal); Z88.0 Allergy status to penicillin; Z87.891 Personal history of nicotine dependence
CPT/HCPCS: 43999

== ENCOUNTER 2023-11-10 09:26 | Day surgery (SDC) | payer BC ==
[2023-11-07 13:17] VITALS: BMI 29.2
[~2023-11-10 09:26] MED LIST changes: +HYDROmorphone 0.5 MG/0.5 ML SYRINGE IVP PRN; -LACTATED RINGERS 1,000 ML IV SCH; +droPERidol 5 MG/2 ML VIAL IVP ONE
[2023-11-10] MEDS: LACTATED RINGERS 1,000 ML IV SCH (10:13)
[2023-11-10] MEDS: LIDOCAINE 1% (10MG/ML) FOR IV START INTRADERMA PRN (10:14)
[2023-11-10] MEDS: ONDANSETRON 4 MG/2 ML VIAL IVP ONE (10:16)
[2023-11-10] MEDS: DEXAMETHASONE SOD PHOSPHATE 4 MG/ML 1 ML VIAL IV ONE (10:16)
[2023-11-10] MEDS: SCOPOLAMINE 1 MG/72 HR PATCH TRANSDERM ONE (10:32)
[2023-11-10] MEDS: MIDAZOLAM 2 MG/2 ML VIAL IVP ONE (10:37)
[2023-11-10] MEDS ORDERED: ePHEDrine 50 MG/ML 1 ML VIAL ONE (11:35)
[2023-11-10] MEDS ORDERED: LIDOCAINE 1% INJ 10MG/ML (20 ML MDV) ONE (11:35)
[2023-11-10] MEDS ORDERED: SODIUM CHLORIDE 0.9% (PF) 10 ML VIAL ONE (11:35)
[2023-11-10] MEDS ORDERED: PROPOFOL 10 MG/ML 20 ML VIAL IV ONE (11:35)
[2023-11-10] MEDS ORDERED: MIDAZOLAM 2 MG/2 ML VIAL ONE (11:35)
[2023-11-10] MEDS ORDERED: ROPIVACAINE 5 MG/ML 30 ML VIAL ONE (11:35)
[2023-11-10] MEDS ORDERED: fentaNYL (PF) 50 MCG/ML 2 ML AMP ONE (11:35)
[2023-11-10] MEDS: ceFAZolin 1,000 MG in SODIUM CHLORIDE 0.9% 1,000 ML IRRIGATION ONE (11:44)
[2023-11-10] MEDS: LACTATED RINGERS 1,000 ML IV ONE (12:11)
--- NOTE | 2023-11-10 13:50 | P.ANPRN ---
Procedure Note - Anesthesia - Nerve Block Performed Right Adductor Canal Single Time Out Performed: Yes (1036) Date of Procedure: 11/10/23 Procedure Start Time: 10:36 Procedure Stop Time: 10:46 Location of Patient: PreOp Indication: Acute Post-Operative Pain, Requested by Surgeon Sedation Type: Sedate with meaningful contact maintained Preparation: Sterile Prep, Sterile Dressing Position: Supine Catheter: None Needle Types: Pajunk Needle Gauge: 21 Ultrasound used to visualize needle placement: Yes Ultrasound used to observe medication spread: Yes Injectate: 0.5% Ropivacaine (see comment for volume) (20 mL of block solution containing 10 ML of 0.5% ropivacaine mixed with 10 MG of preservative-free normal saline) Blood Aspirated: No Pain Paresthesia on Injection Noted: No Resistance on Injection: Normal Image Stored and Saved: Yes Events: Uneventful and Well Tolerated
--- NOTE | 2023-11-10 13:53 | P.ANPRN ---
Procedure Note - Anesthesia - Nerve Block Performed Right Popliteal Single Time Out Performed: Yes (1036) Date of Procedure: 11/10/23 Procedure Start Time: 10:36 Procedure Stop Time: 10:46 Location of Patient: PreOp Indication: Acute Post-Operative Pain, Requested by Surgeon Sedation Type: Sedate with meaningful contact maintained Preparation: Sterile Prep, Sterile Dressing Position: Left Lateral Catheter: None Needle Types: Pajunk Needle Gauge: 21 Ultrasound used to visualize needle placement: Yes Ultrasound used to observe medication spread: Yes Injectate: 0.5% Ropivacaine (see comment for volume) (21 mL of block solution containing 20 ML of 0.5% ropivacaine mixed with 4 MG of dexamethasone) Blood Aspirated: No Pain Paresthesia on Injection Noted: No Resistance on Injection: Normal Image Stored and Saved: Yes Events: Uneventful and Well Tolerated
--- NOTE | 2023-11-10 13:58 | P.OP ---
Date of Procedure: 11/10/23 Preoperative Diagnosis: 1. Displaced pilon fracture with displaced fibular fracture Postoperative Diagnosis: Same Procedure(s) Performed: 1.Open reduction with internal fixation right pilon fracture and with fibular fracture fixation 2. Arthroscopic evaluation right ankle Implants: Arthrex precontoured lateral malleolar plate Arthrex medial tibial plate Anesthesia: DAVID Surgeon: Guy Bridges Estimated Blood Loss (ml): 20 Pathology: none sent Condition: stable Disposition: PACU Description of Procedure: Prior to the patient being brought to the operating room, anesthesia administered a nerve block on the affected lower extremity. The patient was brought into the operative room and placed on table in supine position. Timeout was taken to confirm correct patient identifiers, correct laterality of surgery, and correct procedure. Once all staff in the room were in agreement with the timeout, the patient was induced and placed under general anesthesia. A well- padded tourniquet was placed on the thigh of the surgical leg and a wedge underneath the ipsilateral hip to internally rotate the leg. The leg was then prepped and draped in usual manner. The leg was exsanguinated with an Esmarch bandage and then the tourniquet was inflated to 250 mmHg. Attention was directed over the lateral malleolus where a straight linear incision was made along the midline. The incision was deepened under the subcutaneous tissue careful to identify, avoid, and retract any neurovascular structures and cauterize any bleeding vessels. Dissection was carried down to level of the periosteum. A linear periosteal incision was made and the tissues were reflected anteriorly and posteriorly to expose the fracture. The soft tissue and hematoma were evacuated from between the fracture fragments. The fracture was manually reduced and then fixated with a smooth K wire. Fluoroscopy confirmed proper alignment of the fibular fracture. An Arthrex precontoured lateral malleolar plate was then positioned and adjusted under fluoroscopy until it was aligned appropriately. The plate was then temporarily fixated. Locking screws were placed in the most proximal 2 holes of the plate. Distal locking screws were then placed into the lateral malleolus. Drilling for the sternal screws was done under direct fluoroscopic visualization so as not to enter the lateral gutter of the ankle joint. Then attention was directed over the medial side of the tibia and medial malleolus. A linear incision was made down the midline. The incision was deepened down to the subcutaneous tissue careful to identify, avoid, and retract any neurovascular structures and cauterize any bleeding vessels. Blunt dissection was continued anteriorly and posteriorly to expose periosteum. The periosteum was incised over the fracture fragment and reflected anteriorly and posteriorly. The fracture fragment was freed from any soft tissue attachments except for the deltoid which was left intact. There are bony fragments near the proximal apex that were removed and interposing soft tissue and the joint space and between the fracture fragments that was also removed. The area was irrigated thoroughly with antibiotic saline. The fracture fragment was manually manipulated into position and then held in place with a K wire. Fluoroscopy showed that there was anatomic alignment of the fracture. A second wire was placed to further stabilize the fracture. Small joint arthroscope was then inserted into the medial gutter the ankle joint. This is used to assess the articular surface at the junction of the fracture. The imaging showed that there was good reduction of the fracture line in the articular surface without any significant step-off. However there was osteochondral loss at the anterior margin of the fracture of the tibia. Once the arthroscopy was completed, an Arthrex precontoured medial tibial plate was positioned over the fracture and temporarily fixated. Fluoroscopy confirmed the proper position of the plate. The first screw was through the plate in the first hole just proximal to the apex of the fracture. This is a nonlocking compression screw to help contour the plate to the tibia. Once that was done fluoroscopy showed that the fracture was well reduced. A second screw was placed in the most proximal hole the plate which was a locking screw. Next attention was shifted distally were another 3.0 mm cortical screw was inserted through the plate and across the fracture site to compress the fracture. The remaining distal holes were filled with 3.0mm locking screws. Final fluoroscopic imaging showed denominational of the contour of the tibial plafond as well as maintain length of the fibula. All fixation was properly positioned. Under direct, live fluoroscopic visualization, the ankle was taken through stress testing to evaluate the syndesmosis. There is no excessive movement of the syndesmosis or widening of the medial joint gutter. Wounds were thoroughly irrigated with antibiotic saline. Deep closure of both incisions was done with 2-0 Vicryl. Subcutaneous closure was done with 4-0 Monocryl and skin closure done with stainless steel katerin. An Arthrex jumpstart dressing was placed over both incisions and then a bulky dry bandage was applied to the leg. The tourniquet was released and capillary refill return to all digits on the foot. Then a well-padded, well molded plaster posterior mold/sugar tong splint was applied to the leg. Ankle was held in neutral position until the splint was dried. Anesthesia was reversed and the patient was taken recovery with vital signs stable.
[2023-11-10 14:01] VITALS: TEMP 97
--- NOTE | 2023-11-10 14:32 | FL ---
Fluoroscopy History: RIGHT ANKLE FX Right ankle ORIF 1 min 7 sec fl .[id number] DAP
--- NOTE | 2023-11-10 15:04 | XR ---
Fluoroscopy History: RIGHT ANKLE FX Right ankle ORIF 1 min 7 sec fl .[id number] DAP
[2023-11-10 15:08] VITALS: BP 125/70; PULSE 79; RESP 18
== END 2023-11-10 15:23 | disposition home or self-care (01) ==
LOC: OR 09:26
PROVIDERS: ATTEND Podiatrist
DX: S82.871A Displaced pilon fracture of right tibia, initial encounter for closed fracture (principal); I10 Essential (primary) hypertension; E78.5 Hyperlipidemia, unspecified; F41.9 Anxiety disorder, unspecified; M19.90 Unspecified osteoarthritis, unspecified site; E03.9 Hypothyroidism, unspecified; Z79.01 Long term (current) use of anticoagulants; Z79.899 Other long term (current) drug therapy; Z79.890 Hormone replacement therapy; Z88.2 Allergy status to sulfonamides; X58.XXXA Exposure to other specified factors, initial encounter
CPT/HCPCS: 64447; 64445; 73610; 27792; C1713; J2250; J1100; J0690 ×2; J2405; J2001; J3010; J2795; J2704